=== PATIENT | male | born 1970 | race Two or more races ===

== ENCOUNTER 2022-10-10 10:45 | Inpatient (IN) | payer OTHER ==
[~2022-10-10] VITALS: Ht 175.3 cm; Wt 79.4 kg
[~2022-10-10 10:45] MED LIST: ACETAMINOOPHEN-1 TAB PO; CIPRO500 MG PO; CIPROFLOXACIN750 MG PO; DIAZEPAM10 MG PO; DOCUSATE SODIU100 MG PO; GABAPENTIN800 MG PO; METHYLPRED4 MG/DOSE- PO; MOTRIN600 MG PO; PROTONIX40 MG PO; TRAMADOL HCL50 MG PO; TRIPLE ANTIBIOT15 GM TP
[2022-10-10] MEDS ORDERED: LITHIUM PO (14:39)
[2022-10-17] MEDS ORDERED: COLACE100 MG PO (07:25)
[2022-10-17] MEDS ORDERED: MEDROLPACK PO (07:25)
[2022-10-17] MEDS ORDERED: ACETAMINOPHEN-1 EAC2 PO (07:25)
[2022-10-17] MEDS ORDERED: ZOFRAN8 MG PO (07:26)
== END 2022-10-18 12:41 | disposition home or self-care (01) | DRG 473 ==
LOC: O/R 10-17 05:09 → SURG 10-17 07:00 → PED 10-17 10:06 → SURG 10-17 10:45 → PED 10-18 12:41
PROVIDERS: ADMIT Orthopaedic Surgery Orthopaedic Surgery of the Spine; ATTEND Orthopaedic Surgery Orthopaedic Surgery of the Spine
PROC: 0RT30ZZ Resection of Cervical Vertebral Disc, Open Approach (ICD-10-PCS; 2022-10-17)
PROC: 0PB30ZZ Excision of Cervical Vertebra, Open Approach (ICD-10-PCS; 2022-10-17)
PROC: 07DS0ZZ Extraction of Vertebral Bone Marrow, Open Approach (ICD-10-PCS; 2022-10-17)
PROC: 0RG20A0 Fusion of 2 or more Cervical Vertebral Joints with Interbody Fusion Device, Anterior Approach, Anterior Column, Open Approach (ICD-10-PCS; principal; 2022-10-17 07:00)
DX: M50.021 Cervical disc disorder at C4-C5 level with myelopathy (principal)